=== PATIENT | female | born 1985 | race Two or more races ===

== ENCOUNTER 2020-06-09 10:14 | Emergency (ER) | payer OTHER ==
[~2020-06-09] VITALS: Ht 170.2 cm; Wt 90.7 kg
[2020-06-09 10:24] VITALS: BP 142/92
== END 2020-06-09 11:17 | disposition home or self-care (01) ==
LOC: ER 10:14
DX: H10.13 Acute atopic conjunctivitis, bilateral (principal); L23.9 Allergic contact dermatitis, unspecified cause
CPT/HCPCS: 99283; J7030

== ENCOUNTER 2021-03-07 10:54 | Emergency (ER) | payer OTHER ==
[~2021-03-07] VITALS: Ht 170.2 cm; Wt 81.6 kg
[2021-03-07 11:00] VITALS: BP 124/76
== END 2021-03-07 12:12 | disposition home or self-care (01) ==
LOC: ER 10:54
DX: U07.1 COVID-19 (principal); Z98.890 Other specified postprocedural states
CPT/HCPCS: 36415; 71045; 87426

== ENCOUNTER 2021-10-19 10:20 | Emergency (ER) | payer MEDICAID ==
[~2021-10-19] VITALS: Ht 170.2 cm; Wt 95.3 kg
[2021-10-19 10:22] VITALS: BP 143/80
== END 2021-10-19 14:45 | disposition left against medical advice (07) ==
LOC: ER 10:20
DX: M79.641 Pain in right hand (principal); Z53.21 Procedure and treatment not carried out due to patient leaving prior to being seen by health care provider
CPT/HCPCS: 73130

== ENCOUNTER 2022-03-09 09:30 | Emergency (ER) | payer MEDICAID ==
[~2022-03-09] VITALS: Ht 170.2 cm; Wt 90.7 kg
[2022-03-09] MEDS ORDERED: IBUP800T27 PO (10:50)
[2022-03-09 10:53] VITALS: BP 131/76
[2022-03-09] MEDS ORDERED: IBUPROFEN 800 MG TAB PO ONE (11:00)
== END 2022-03-09 11:05 | disposition home or self-care (01) ==
LOC: ER 09:30
DX: M79.671 Pain in right foot (principal); S90.31XA Contusion of right foot, initial encounter; X58.XXXA Exposure to other specified factors, initial encounter; Y93.89 Activity, other specified; Y92.89 Other specified places as the place of occurrence of the external cause; Y99.8 Other external cause status
CPT/HCPCS: 73630

== ENCOUNTER 2023-10-06 08:53 | Emergency (ER) | payer MEDICAID ==
[~2023-10-06] VITALS: Ht 170.2 cm; Wt 76.8 kg
[~2023-10-06 08:53] MED LIST: IBUP-1456 PO
[2023-10-06 09:58] VITALS: BP 137/84; PULSE 88; RESP 16; TEMP 97.8; O2SAT 99
[2023-10-06 10:09] LABS: Urine WBC None Seen /hpf (0 - 5)
[2023-10-06 10:20] LABS: Urine Bacteria NONE SEEN /hpf (None Seen); Urine Blood Negative /uL (Negative); Urine Clarity Clear (Clear); Urine Color Yellow (Yellow); Urine Mucus FEW (None Seen); Urine Protein, UAD Negative (Negative); Urine Specific Gravity 1.016 (1.001-1.035); Urine Urobilinogen Normal (Negative); Urine pH 5.5 (5.0-8.0)
[2023-10-06] MEDS ORDERED: CYCL-839 PO (10:28)
[2023-10-06] MEDS ORDERED: NAP500T PO (10:28)
[2023-10-06] MEDS: CYCLOBENZAPRINE HCL 10 MG TAB PO ONE (10:29)
[2023-10-06] MEDS: KETOROLAC TROMETH 60MG/2ML VIAL IM ONE (10:31)
== END 2023-10-06 10:38 | disposition home or self-care (01) ==
LOC: ER 08:53
DX: M75.01 Adhesive capsulitis of right shoulder (principal); M25.511 Pain in right shoulder; Z79.899 Other long term (current) drug therapy; Z79.1 Long term (current) use of non-steroidal anti-inflammatories (NSAID)
CPT/HCPCS: 73030; 81001; 96372; 99284; J1885